=== PATIENT | female | born 1960 | race Caucasian/White ===

== ENCOUNTER 2017-08-10 10:21 | Outpatient (CLI) | payer OTHER ==
[~2017-08-10 10:21] MED LIST: BACTRIM 400-801 EACH PO; DOLOGESIC CAPSU1 CAP PO; MEDROLPACK PO; ORPH100T PO; SYNTHROID50 MCG PO; TUSSI PRES-B L120 M1 PO; ZITHROMAX TRI-500 MG PO
== END 2017-08-10 10:34 | disposition home or self-care (01) ==
LOC: MAMO-SONO 10:21
DX: Z12.31 Encounter for screening mammogram for malignant neoplasm of breast (principal); N60.11 Diffuse cystic mastopathy of right breast; N60.12 Diffuse cystic mastopathy of left breast

== ENCOUNTER 2017-08-10 12:00 | Outpatient (CLI) | payer OTHER | END 2017-08-10 12:13 | disposition home or self-care (01) | LOC: NUCLEAR 12:00 | DX: M81.0 Age-related osteoporosis without current pathological fracture (principal) ==

== ENCOUNTER → 2018-06-09 | Outpatient (CLI) | payer OTHER | END | disposition home or self-care (01) | LOC: LAB 09:25 | DX: E78.2 Mixed hyperlipidemia (principal); I11.9 Hypertensive heart disease without heart failure; E56.8 Deficiency of other vitamins; N39.0 Urinary tract infection, site not specified; Z12.11 Encounter for screening for malignant neoplasm of colon; R19.5 Other fecal abnormalities; E55.9 Vitamin D deficiency, unspecified; N19 Unspecified kidney failure; E11.9 Type 2 diabetes mellitus without complications; C18.0 Malignant neoplasm of cecum; K92.1 Melena; E03.8 Other specified hypothyroidism; D50.8 Other iron deficiency anemias; R80.8 Other proteinuria ==

== ENCOUNTER 2018-06-15 09:25 | Outpatient (CLI) | payer OTHER | END 2018-06-15 09:33 | disposition home or self-care (01) | LOC: LAB 09:25 | DX: E03.8 Other specified hypothyroidism (principal); E78.2 Mixed hyperlipidemia; I11.9 Hypertensive heart disease without heart failure; E56.8 Deficiency of other vitamins; N39.0 Urinary tract infection, site not specified; Z12.11 Encounter for screening for malignant neoplasm of colon; R19.5 Other fecal abnormalities; E55.9 Vitamin D deficiency, unspecified; N19 Unspecified kidney failure; E11.9 Type 2 diabetes mellitus without complications; R80.9 Proteinuria, unspecified; C18.0 Malignant neoplasm of cecum; K92.1 Melena; D50.8 Other iron deficiency anemias ==

== ENCOUNTER 2018-06-25 10:27 | Emergency (ER) | payer OTHER ==
[~2018-06-25] VITALS: Ht 170.2 cm; Wt 61.7 kg
== END 2018-06-25 13:08 | disposition home or self-care (01) ==
LOC: ER 10:27
DX: S90.31XA Contusion of right foot, initial encounter (principal); W10.9XXA Fall (on) (from) unspecified stairs and steps, initial encounter; Y93.89 Activity, other specified; Y92.89 Other specified places as the place of occurrence of the external cause; Y99.8 Other external cause status

== ENCOUNTER → 2018-07-19 | Outpatient (CLI) | payer OTHER | END | disposition home or self-care (01) | LOC: LAB 17:40 | DX: D64.89 Other specified anemias (principal) ==

== ENCOUNTER → 2018-08-21 | Outpatient (CLI) | payer OTHER | END | disposition home or self-care (01) | LOC: RAD 501 11:14 | DX: M20.41 Other hammer toe(s) (acquired), right foot (principal) ==

== ENCOUNTER 2018-09-13 09:45 | Outpatient (CLI) | payer OTHER | END 2018-09-13 09:57 | disposition home or self-care (01) | LOC: RAD 501 09:45 | DX: M77.31 Calcaneal spur, right foot (principal) ==

== ENCOUNTER → 2018-10-13 06:25 | Outpatient (CLI) | payer OTHER | END | disposition home or self-care (01) | LOC: LAB 06:25 | DX: E03.8 Other specified hypothyroidism (principal); E06.3 Autoimmune thyroiditis; D51.1 Vitamin B12 deficiency anemia due to selective vitamin B12 malabsorption with proteinuria; D51.0 Vitamin B12 deficiency anemia due to intrinsic factor deficiency; Z80.3 Family history of malignant neoplasm of breast; Z80.0 Family history of malignant neoplasm of digestive organs; D51.3 Other dietary vitamin B12 deficiency anemia; D50.8 Other iron deficiency anemias; D51.8 Other vitamin B12 deficiency anemias; I10 Essential (primary) hypertension ==

== ENCOUNTER 2018-12-03 10:50 | Emergency (ER) | payer OTHER ==
[~2018-12-03] VITALS: Ht 170.2 cm; Wt 59.0 kg
[2018-12-03] MEDS ORDERED: TESSALON PERLE100 M1 PO (11:41)
[2018-12-03] MEDS ORDERED: INTEGRA CAPSUL1 EACH PO (11:41)
== END 2018-12-03 15:32 | disposition home or self-care (01) ==
LOC: ER 10:50
DX: J45.998 Other asthma (principal)

== ENCOUNTER 2019-01-17 07:13 | Outpatient (CLI) | payer OTHER ==
[~2019-01-17 07:13] MED LIST changes: +INTEGRA CAPSUL1 EACH PO; +TESSALON PERLE100 M1 PO
== END 2019-01-17 07:20 | disposition home or self-care (01) ==
LOC: MAMO-SONO 07:13
DX: N60.11 Diffuse cystic mastopathy of right breast (principal); N60.12 Diffuse cystic mastopathy of left breast

== ENCOUNTER 2019-03-02 07:42 | Outpatient (CLI) | payer OTHER | END 2019-03-02 10:23 | disposition home or self-care (01) | LOC: LAB 07:42 | DX: D50.8 Other iron deficiency anemias (principal); E03.8 Other specified hypothyroidism; E78.2 Mixed hyperlipidemia; I11.9 Hypertensive heart disease without heart failure; N39.0 Urinary tract infection, site not specified; Z12.11 Encounter for screening for malignant neoplasm of colon; E56.8 Deficiency of other vitamins; E55.9 Vitamin D deficiency, unspecified; N19 Unspecified kidney failure; E11.9 Type 2 diabetes mellitus without complications; R80.8 Other proteinuria; C18.0 Malignant neoplasm of cecum; K92.1 Melena ==

== ENCOUNTER 2019-03-12 12:40 | Outpatient (CLI) | payer OTHER | END 2019-03-12 12:47 | disposition home or self-care (01) | LOC: LAB 12:40 | DX: E03.8 Other specified hypothyroidism (principal); Z80.0 Family history of malignant neoplasm of digestive organs; Z80.3 Family history of malignant neoplasm of breast; D55.0 Anemia due to glucose-6-phosphate dehydrogenase [G6PD] deficiency; D51.8 Other vitamin B12 deficiency anemias ==

== ENCOUNTER 2019-05-16 09:26 | Outpatient (CLI) | payer OTHER | END 2019-05-16 16:26 | disposition home or self-care (01) | LOC: LAB 09:26 | DX: E03.8 Other specified hypothyroidism (principal) ==

== ENCOUNTER 2019-06-01 06:48 | Outpatient (CLI) | payer OTHER | END 2019-06-01 06:53 | disposition home or self-care (01) | LOC: LAB 06:48 | DX: D50.8 Other iron deficiency anemias (principal); E03.8 Other specified hypothyroidism; E78.2 Mixed hyperlipidemia; I11.9 Hypertensive heart disease without heart failure; E11.9 Type 2 diabetes mellitus without complications; E56.8 Deficiency of other vitamins; N39.0 Urinary tract infection, site not specified; Z12.11 Encounter for screening for malignant neoplasm of colon; E55.9 Vitamin D deficiency, unspecified; N19 Unspecified kidney failure; R80.8 Other proteinuria; K92.1 Melena ==

== ENCOUNTER 2019-06-05 09:35 | Outpatient (CLI) | payer OTHER | END 2019-06-05 15:00 | disposition home or self-care (01) | LOC: LAB 09:35 | DX: D50.8 Other iron deficiency anemias (principal); E03.8 Other specified hypothyroidism; E78.2 Mixed hyperlipidemia; I11.9 Hypertensive heart disease without heart failure; E56.8 Deficiency of other vitamins; N39.0 Urinary tract infection, site not specified; Z12.11 Encounter for screening for malignant neoplasm of colon; E55.9 Vitamin D deficiency, unspecified; N19 Unspecified kidney failure; E11.9 Type 2 diabetes mellitus without complications; R80.8 Other proteinuria; C18.0 Malignant neoplasm of cecum; K92.1 Melena ==

== ENCOUNTER 2019-06-20 10:01 | Outpatient (CLI) | payer OTHER | END 2019-06-20 12:45 | disposition home or self-care (01) | LOC: RAD 10:01 | DX: M16.0 Bilateral primary osteoarthritis of hip (principal); M17.0 Bilateral primary osteoarthritis of knee ==

== ENCOUNTER 2019-11-05 03:22 | Emergency (ER) | payer OTHER ==
[~2019-11-05] VITALS: Ht 170.2 cm; Wt 61.2 kg
[2019-11-05] MEDS ORDERED: CIPRO500 MG PO (06:15)
[2019-11-05] MEDS ORDERED: PYRIDIUM DS200 MG PO (06:15)
== END 2019-11-05 06:36 | disposition home or self-care (01) ==
LOC: ER 03:22
DX: N39.0 Urinary tract infection, site not specified (principal); B96.29 Other Escherichia coli [E. coli] as the cause of diseases classified elsewhere; R10.31 Right lower quadrant pain

== ENCOUNTER 2020-02-04 13:15 | Outpatient (CLI) | payer OTHER ==
[~2020-02-04 13:15] MED LIST changes: +CIPRO500 MG PO; +PYRIDIUM DS200 MG PO
== END 2020-02-04 13:22 | disposition home or self-care (01) ==
LOC: RAD 13:15
PROVIDERS: ATTEND Physical Medicine & Rehabilitation
DX: M16.12 Unilateral primary osteoarthritis, left hip (principal); M54.5 Low back pain; M54.16 Radiculopathy, lumbar region

== ENCOUNTER 2020-04-01 12:30 | Outpatient (CLI) | payer OTHER | END 2020-04-01 12:49 | disposition home or self-care (01) | LOC: MAMO-SONO 12:30 | PROVIDERS: ATTEND Obstetrics & Gynecology | DX: N60.01 Solitary cyst of right breast (principal); R92.2 Inconclusive mammogram ==

== ENCOUNTER 2020-04-11 09:51 | Outpatient (CLI) | payer OTHER | END 2020-04-11 10:44 | disposition home or self-care (01) | LOC: LAB 09:51 | PROVIDERS: ATTEND Internal Medicine Geriatric Medicine | DX: D50.8 Other iron deficiency anemias (principal); E03.8 Other specified hypothyroidism; E78.2 Mixed hyperlipidemia; I11.9 Hypertensive heart disease without heart failure; E56.8 Deficiency of other vitamins; N39.0 Urinary tract infection, site not specified; Z12.11 Encounter for screening for malignant neoplasm of colon; E55.9 Vitamin D deficiency, unspecified; N19 Unspecified kidney failure; E11.9 Type 2 diabetes mellitus without complications; R80.8 Other proteinuria; C18.0 Malignant neoplasm of cecum; K92.1 Melena ==

== ENCOUNTER → 2020-09-26 06:45 | Outpatient (CLI) | payer OTHER | END | disposition home or self-care (01) | LOC: LAB 06:45 | PROVIDERS: ATTEND Internal Medicine Geriatric Medicine | DX: D50.9 Iron deficiency anemia, unspecified (principal); E03.9 Hypothyroidism, unspecified; E78.2 Mixed hyperlipidemia; I11.9 Hypertensive heart disease without heart failure; E56.8 Deficiency of other vitamins; N39.0 Urinary tract infection, site not specified; Z12.11 Encounter for screening for malignant neoplasm of colon; E55.9 Vitamin D deficiency, unspecified; N19 Unspecified kidney failure; E11.9 Type 2 diabetes mellitus without complications; R80.9 Proteinuria, unspecified; K92.1 Melena ==

== ENCOUNTER → 2020-09-30 06:52 | Outpatient (CLI) | payer OTHER | END | disposition home or self-care (01) | LOC: LAB 06:52 | PROVIDERS: ATTEND Internal Medicine Geriatric Medicine | DX: D50.9 Iron deficiency anemia, unspecified (principal); E03.9 Hypothyroidism, unspecified; E78.2 Mixed hyperlipidemia; I11.9 Hypertensive heart disease without heart failure; E56.8 Deficiency of other vitamins; N39.0 Urinary tract infection, site not specified; Z12.11 Encounter for screening for malignant neoplasm of colon; E55.9 Vitamin D deficiency, unspecified; N19 Unspecified kidney failure; E11.9 Type 2 diabetes mellitus without complications; R80.9 Proteinuria, unspecified; C18.9 Malignant neoplasm of colon, unspecified; K92.1 Melena; Z12.10 Encounter for screening for malignant neoplasm of intestinal tract, unspecified ==

== ENCOUNTER 2020-11-24 13:08 | Outpatient (CLI) | payer OTHER | END 2020-11-24 13:09 | disposition home or self-care (01) | LOC: NUCLEAR 13:08 | PROVIDERS: ATTEND Obstetrics & Gynecology | DX: M81.0 Age-related osteoporosis without current pathological fracture (principal) ==

== ENCOUNTER → 2021-01-28 09:06 | Outpatient (CLI) | payer OTHER | END | disposition home or self-care (01) | LOC: LAB 09:06 | PROVIDERS: ATTEND Internal Medicine Geriatric Medicine | DX: D50.8 Other iron deficiency anemias (principal); E03.8 Other specified hypothyroidism; E78.2 Mixed hyperlipidemia; I11.9 Hypertensive heart disease without heart failure; E56.8 Deficiency of other vitamins; N39.0 Urinary tract infection, site not specified; Z12.11 Encounter for screening for malignant neoplasm of colon; R19.5 Other fecal abnormalities; E55.9 Vitamin D deficiency, unspecified; N28.89 Other specified disorders of kidney and ureter; E11.9 Type 2 diabetes mellitus without complications; R80.8 Other proteinuria ==

== ENCOUNTER 2021-01-30 14:20 | Outpatient (CLI) | payer OTHER | END 2021-01-30 14:35 | disposition home or self-care (01) | LOC: PPH VACUNA 14:20 | PROVIDERS: ATTEND Emergency Medicine Pediatric Emergency Medicine | DX: Z23 Encounter for immunization (principal) ==

== ENCOUNTER 2021-02-20 09:00 | Outpatient (CLI) | payer OTHER | END 2021-02-20 09:24 | disposition home or self-care (01) | LOC: RX STUDY 09:00 | PROVIDERS: ATTEND Internal Medicine Geriatric Medicine | DX: R13.19 Other dysphagia (principal) ==

== ENCOUNTER → 2021-02-26 09:36 | Outpatient (CLI) | payer OTHER | END | disposition home or self-care (01) | LOC: LAB 09:36 | PROVIDERS: ATTEND Internal Medicine Geriatric Medicine | DX: D64.89 Other specified anemias (principal); E73.8 Other lactose intolerance ==

== ENCOUNTER 2021-07-23 07:55 | Outpatient (CLI) | payer OTHER | END 2021-07-23 08:11 | disposition home or self-care (01) | LOC: MAMO-SONO 07:55 | PROVIDERS: ATTEND Internal Medicine Geriatric Medicine | DX: C50.919 Malignant neoplasm of unspecified site of unspecified female breast (principal); Z12.31 Encounter for screening mammogram for malignant neoplasm of breast; N63 Unspecified lump in breast; N64.4 Mastodynia; N60.12 Diffuse cystic mastopathy of left breast; N60.11 Diffuse cystic mastopathy of right breast ==

== ENCOUNTER 2021-08-25 08:00 | Outpatient (CLI) | payer OTHER | END 2021-08-25 08:30 | disposition home or self-care (01) | LOC: PPH VACUNA 08:00 | PROVIDERS: ATTEND Emergency Medicine Pediatric Emergency Medicine | DX: Z23 Encounter for immunization (principal) ==

== ENCOUNTER 2021-08-27 10:10 | Outpatient (CLI) | payer OTHER | END 2021-08-27 10:42 | disposition home or self-care (01) | LOC: LAB 10:10 | PROVIDERS: ATTEND Obstetrics & Gynecology | DX: N95.8 Other specified menopausal and perimenopausal disorders (principal) ==

== ENCOUNTER 2021-11-12 06:16 | Outpatient (CLI) | payer OTHER | END 2021-11-12 06:17 | disposition home or self-care (01) | LOC: LAB 06:16 | PROVIDERS: ATTEND Internal Medicine Geriatric Medicine | DX: D50.9 Iron deficiency anemia, unspecified (principal); E03.9 Hypothyroidism, unspecified; E78.2 Mixed hyperlipidemia; I11.9 Hypertensive heart disease without heart failure; E56.8 Deficiency of other vitamins; N39.0 Urinary tract infection, site not specified; Z12.11 Encounter for screening for malignant neoplasm of colon; R19.5 Other fecal abnormalities; E55.9 Vitamin D deficiency, unspecified; N19 Unspecified kidney failure; E11.9 Type 2 diabetes mellitus without complications ==

== ENCOUNTER 2021-11-25 09:37 | Emergency (ER) | payer OTHER ==
[~2021-11-25] VITALS: Ht 167.6 cm; Wt 56.7 kg
== END 2021-11-25 12:09 | disposition home or self-care (01) ==
LOC: ER 09:37
DX: M94.0 Chondrocostal junction syndrome [Tietze] (principal); E03.9 Hypothyroidism, unspecified; Z72.0 Tobacco use

== ENCOUNTER 2021-12-24 10:20 | Outpatient (CLI) | payer OTHER | END 2021-12-24 10:31 | disposition home or self-care (01) | LOC: LAB 10:20 | PROVIDERS: ATTEND Internal Medicine Geriatric Medicine | DX: N39.0 Urinary tract infection, site not specified (principal) ==

== ENCOUNTER 2022-01-11 09:26 | Outpatient (CLI) | payer OTHER | END 2022-01-11 09:38 | disposition home or self-care (01) | LOC: RAD 09:26 | PROVIDERS: ATTEND Internal Medicine Geriatric Medicine | DX: M19.029 Primary osteoarthritis, unspecified elbow (principal) ==

== ENCOUNTER 2022-01-13 13:32 | Outpatient (CLI) | payer OTHER | END 2022-01-13 13:42 | disposition home or self-care (01) | LOC: PPH VACUNA 13:32 | PROVIDERS: ATTEND Emergency Medicine Pediatric Emergency Medicine | DX: Z23 Encounter for immunization (principal) ==

== ENCOUNTER 2022-02-01 11:10 | Emergency (ER) | payer OTHER ==
[~2022-02-01] VITALS: Ht 170.2 cm; Wt 56.7 kg
== END 2022-02-01 15:59 | disposition home or self-care (01) ==
LOC: ER 11:10
DX: R10.2 Pelvic and perineal pain (principal)

== ENCOUNTER 2022-02-03 11:42 | Outpatient (CLI) | payer OTHER | END 2022-02-03 11:52 | disposition home or self-care (01) | LOC: LAB 11:42 | PROVIDERS: ATTEND Internal Medicine Geriatric Medicine | DX: D50.9 Iron deficiency anemia, unspecified (principal); E03.9 Hypothyroidism, unspecified; E78.2 Mixed hyperlipidemia; I11.9 Hypertensive heart disease without heart failure; E56.8 Deficiency of other vitamins; N39.0 Urinary tract infection, site not specified; Z12.11 Encounter for screening for malignant neoplasm of colon; R19.5 Other fecal abnormalities; E55.9 Vitamin D deficiency, unspecified; N19 Unspecified kidney failure; E11.9 Type 2 diabetes mellitus without complications ==

== ENCOUNTER → 2022-04-10 09:53 | Outpatient (CLI) | payer OTHER | END | disposition home or self-care (01) | LOC: LAB 09:53 | PROVIDERS: ATTEND Psychiatry & Neurology Neurology | DX: G30.9 Alzheimer's disease, unspecified (principal); M06.00 Rheumatoid arthritis without rheumatoid factor, unspecified site; D51.9 Vitamin B12 deficiency anemia, unspecified; E03.9 Hypothyroidism, unspecified ==

== ENCOUNTER 2022-05-08 10:25 | Outpatient (CLI) | payer OTHER | END 2022-05-08 10:29 | disposition home or self-care (01) | LOC: LAB 10:25 | PROVIDERS: ATTEND Internal Medicine Gastroenterology | DX: Z11.52 Encounter for screening for COVID-19 (principal); Z20.822 Contact with and (suspected) exposure to COVID-19; Z20.828 Contact with and (suspected) exposure to other viral communicable diseases ==

== ENCOUNTER 2022-05-12 08:39 | Outpatient (CLI) | payer OTHER | END 2022-05-12 08:49 | disposition home or self-care (01) | LOC: SONOGRAMA 08:39 | PROVIDERS: ATTEND Internal Medicine Gastroenterology | DX: R10.13 Epigastric pain (principal) ==

== ENCOUNTER → 2022-06-01 10:13 | Outpatient (CLI) | payer OTHER | END | disposition home or self-care (01) | LOC: LAB 10:13 | PROVIDERS: ATTEND Internal Medicine Geriatric Medicine | DX: D50.9 Iron deficiency anemia, unspecified (principal); E03.9 Hypothyroidism, unspecified; E78.2 Mixed hyperlipidemia; I11.9 Hypertensive heart disease without heart failure; E56.8 Deficiency of other vitamins; N39.0 Urinary tract infection, site not specified; Z12.11 Encounter for screening for malignant neoplasm of colon; R19.5 Other fecal abnormalities; E55.9 Vitamin D deficiency, unspecified; N19 Unspecified kidney failure; E11.9 Type 2 diabetes mellitus without complications ==

== ENCOUNTER → 2022-07-19 10:42 | Outpatient (CLI) | payer OTHER | END | disposition home or self-care (01) | LOC: LAB 10:42 | PROVIDERS: ATTEND Internal Medicine Geriatric Medicine | DX: N39.0 Urinary tract infection, site not specified (principal) ==

== ENCOUNTER 2022-07-27 08:06 | Outpatient (CLI) | payer OTHER | END 2022-07-27 08:14 | disposition home or self-care (01) | LOC: MAMO-SONO 08:06 | PROVIDERS: ATTEND Obstetrics & Gynecology | DX: Z12.31 Encounter for screening mammogram for malignant neoplasm of breast (principal); N60.11 Diffuse cystic mastopathy of right breast; N60.12 Diffuse cystic mastopathy of left breast ==

== ENCOUNTER 2022-08-16 09:28 | Emergency (ER) | payer OTHER ==
[~2022-08-16] VITALS: Ht 170.2 cm; Wt 56.7 kg
== END 2022-08-16 13:21 | disposition home or self-care (01) ==
LOC: ER 09:28
DX: R30.0 Dysuria (principal); N39.0 Urinary tract infection, site not specified

== ENCOUNTER 2022-11-08 07:12 | Outpatient (CLI) | payer OTHER | END 2022-11-08 07:13 | disposition home or self-care (01) | LOC: LAB 07:12 | PROVIDERS: ATTEND Internal Medicine Geriatric Medicine | DX: D50.9 Iron deficiency anemia, unspecified (principal); E03.9 Hypothyroidism, unspecified; E78.2 Mixed hyperlipidemia; I11.9 Hypertensive heart disease without heart failure; E56.8 Deficiency of other vitamins; N39.0 Urinary tract infection, site not specified; Z12.11 Encounter for screening for malignant neoplasm of colon; R19.5 Other fecal abnormalities; E55.9 Vitamin D deficiency, unspecified; N19 Unspecified kidney failure; E11.9 Type 2 diabetes mellitus without complications ==

== ENCOUNTER 2022-12-16 08:26 | Outpatient (CLI) | payer OTHER | END 2022-12-16 08:28 | disposition home or self-care (01) | LOC: LAB 08:26 | PROVIDERS: ATTEND Internal Medicine Gastroenterology | DX: R10.31 Right lower quadrant pain (principal) ==

== ENCOUNTER 2022-12-17 07:41 | Outpatient (CLI) | payer OTHER | END 2022-12-17 07:51 | disposition home or self-care (01) | LOC: TOM 07:41 | PROVIDERS: ATTEND Internal Medicine Gastroenterology | DX: R10.32 Left lower quadrant pain (principal) ==

== ENCOUNTER 2023-02-24 09:49 | Outpatient (CLI) | payer OTHER ==
[2023-02-24 11:12] LABS: URINE APPEARANCE Clear; URINE BILIRRUBIN Negative (NEGATIVE); URINE BLOOD Negative; URINE COLOR Yellow; URINE GLUCOSE Negative (NEGATIVE); URINE LEUKOCYTE Trace; URINE NITRATE Negative; URINE PROTEIN Negative (NEGATIVE); URINE UROBILINOGEN 0.2 E.U./dl
[2023-02-24 11:16] LABS: URINE BACTERIA 42.8 uL (0.0-1933); URINE WBC 42.6 uL (0.0-23.2)
[2023-02-24 11:20] LABS: URINE RBC 1.2 uL (0.0-20.8)
[2023-02-24 11:38] LABS: HEMATOCRIT 35.2 % (36.0-45.00); HEMOGLOBIN 11.8 g/dL (12.0-15.00); MEAN CELL VOLUME 98.7 fL (80.00-100.00); MEAN CORPUSCULAR HEMOGLOBIN 33.1 pg (27.00-32.0); MEAN CORPUSCULAR HGB CONC 33.6 g/dl (32.0-36.0); PLATELET COUNT 348 K/uL (150-450); RED BLOOD COUNT 3.56 M/uL (4.00-6.00)
[2023-02-24 12:13] LABS: BILIRUBIN TOTAL 0.95 mg/dL (0.3-1.2); CALCIUM 9.5 mg/dL (8.5-10.1); CHOL HDL RATIO 2.2 (0-5.0); CREATININE SERUM 0.72 mg/dL (0.55-1.02); GFR 82.08; GLOBULINA 3.4 G/DL (2.4-3.5); POTASSIUM 4.41 mEq/L (3.5-5.1); TOTAL PROTEIN 7.4 gm/dL (6.4-8.2); TSH 1.41 uIU/mL (0.358-3.74)
== END 2023-02-24 10:10 | disposition home or self-care (01) ==
LOC: LAB 09:49
PROVIDERS: ATTEND Obstetrics & Gynecology
DX: E78.49 Other hyperlipidemia (principal); E03.8 Other specified hypothyroidism; N30.00 Acute cystitis without hematuria; E55.9 Vitamin D deficiency, unspecified; I10 Essential (primary) hypertension; Z12.11 Encounter for screening for malignant neoplasm of colon

== ENCOUNTER 2023-03-01 09:58 | Outpatient (CLI) | payer OTHER ==
[2023-03-01 14:03] LABS: ob NEGATIVE (NEGATIVE)
== END 2023-03-01 10:03 | disposition home or self-care (01) ==
LOC: LAB 09:58
PROVIDERS: ATTEND Obstetrics & Gynecology
DX: I10 Essential (primary) hypertension (principal); N30.00 Acute cystitis without hematuria; E55.9 Vitamin D deficiency, unspecified; Z12.11 Encounter for screening for malignant neoplasm of colon; E78.49 Other hyperlipidemia

== ENCOUNTER → 2023-05-19 09:02 | Outpatient (CLI) | payer OTHER ==
[2023-05-19 10:13] LABS: HEMATOCRIT 36.7 % (36.0-45.00); HEMOGLOBIN 12.6 g/dL (12.0-15.00); MEAN CELL VOLUME 100.1 fL (80.00-100.00); MEAN CORPUSCULAR HEMOGLOBIN 34.3 pg (27.00-32.0); MEAN CORPUSCULAR HGB CONC 34.3 g/dl (32.0-36.0); PLATELET COUNT 319 K/uL (150-450); RED BLOOD COUNT 3.67 M/uL (4.00-6.00); RED CELL DISTRIBUTION WIDTH 12.6 % (11.5-14.5)
[2023-05-19 10:24] LABS: PH,URINE 6.5 (5.0-8.0); URINE APPEARANCE Clear; URINE BILIRRUBIN Negative (NEGATIVE); URINE BLOOD Negative; URINE COLOR Yellow; URINE GLUCOSE Negative (NEGATIVE); URINE LEUKOCYTE Trace; URINE NITRATE Negative; URINE PROTEIN Negative (NEGATIVE); URINE UROBILINOGEN 0.2 E.U./dl
[2023-05-19 10:29] LABS: URINE BACTERIA 16.3 uL (0.0-1933); URINE EPITHELIAL CELLS 1.5 uL (0.0-38.8); URINE WBC 3.5 uL (0.0-23.2)
[2023-05-19 10:51] LABS: ALBUMIN 4.1 gm/dL (3.4-5.0); BILIRUBIN TOTAL 0.6 mg/dL (0.3-1.2); CALCIUM 9.9 mg/dL (8.5-10.1); CHOL HDL RATIO 2.3 (0-5.0); CREATININE SERUM 0.76 mg/dL (0.55-1.02); GFR 77.11; GLOBULINA 3.5 G/DL (2.4-3.5); POTASSIUM 4.66 mEq/L (3.5-5.1); TOTAL PROTEIN 7.6 gm/dL (6.4-8.2); TSH 1.63 uIU/mL (0.358-3.74)
== END | disposition home or self-care (01) ==
LOC: LAB 09:02
PROVIDERS: ATTEND Internal Medicine Geriatric Medicine
DX: D50.9 Iron deficiency anemia, unspecified (principal); E03.9 Hypothyroidism, unspecified; E78.2 Mixed hyperlipidemia; I11.9 Hypertensive heart disease without heart failure; E56.8 Deficiency of other vitamins; N39.0 Urinary tract infection, site not specified; Z12.11 Encounter for screening for malignant neoplasm of colon; R19.5 Other fecal abnormalities; E55.9 Vitamin D deficiency, unspecified; N19 Unspecified kidney failure; E11.9 Type 2 diabetes mellitus without complications

== ENCOUNTER → 2023-08-04 13:38 | Outpatient (CLI) | payer OTHER | END | disposition home or self-care (01) | LOC: NUCLEAR 13:38 | PROVIDERS: ATTEND Obstetrics & Gynecology | DX: M81.0 Age-related osteoporosis without current pathological fracture (principal) ==

== ENCOUNTER → 2023-12-01 06:27 | Outpatient (CLI) | payer OTHER ==
[2023-12-01 07:16] LABS: PH,URINE 5.5 (5.0-8.0); URINE APPEARANCE Cloudy; URINE BILIRRUBIN Negative (NEGATIVE); URINE BLOOD Negative; URINE COLOR Yellow; URINE GLUCOSE Negative (NEGATIVE); URINE KETONE Negative (NEGATIVE); URINE LEUKOCYTE Moderate; URINE NITRATE Negative; URINE PROTEIN Negative (NEGATIVE); URINE UROBILINOGEN 0.2 E.U./dl
[2023-12-01 07:17] LABS: URINE BACTERIA 4104.6 uL (0.0-1933); URINE EPITHELIAL CELLS 9.4 uL (0.0-38.8); URINE WBC 450.9 uL (0.0-23.2)
[2023-12-01 07:22] LABS: URINE RBC 1.9 uL (0.0-20.8)
[2023-12-01 07:29] LABS: HEMATOCRIT 36.7 % (36.0-45.00); HEMOGLOBIN 12.7 g/dL (12.0-15.00); MEAN CELL VOLUME 98.5 fL (80.00-100.00); MEAN CORPUSCULAR HGB CONC 34.5 g/dl (32.0-36.0); PLATELET COUNT 314 K/uL (150-450); RED BLOOD COUNT 3.73 M/uL (4.00-6.00); RED CELL DISTRIBUTION WIDTH 12.6 % (11.5-14.5)
[2023-12-01 08:23] LABS: ALBUMIN 4.1 gm/dL (3.4-5.0); BILIRUBIN TOTAL 0.8 mg/dL (0.3-1.2); CALCIUM 9.9 mg/dL (8.5-10.1); CHOL HDL RATIO 2.3 (0-5.0); CREATININE SERUM 0.74 mg/dL (0.55-1.02); GFR 79.26; GLOBULINA 3.4 G/DL (2.4-3.5); POTASSIUM 4.45 mEq/L (3.5-5.1); TOTAL PROTEIN 7.5 gm/dL (6.4-8.2); TSH 1.26 uIU/mL (0.358-3.74)
== END | disposition home or self-care (01) ==
LOC: LAB 06:27
PROVIDERS: ATTEND Internal Medicine Geriatric Medicine
DX: D50.9 Iron deficiency anemia, unspecified (principal); E03.9 Hypothyroidism, unspecified; E78.2 Mixed hyperlipidemia; Z11.9 Encounter for screening for infectious and parasitic diseases, unspecified; E56.8 Deficiency of other vitamins; N39.0 Urinary tract infection, site not specified; Z12.11 Encounter for screening for malignant neoplasm of colon; R19.5 Other fecal abnormalities; E55.9 Vitamin D deficiency, unspecified; N19 Unspecified kidney failure; E11.9 Type 2 diabetes mellitus without complications

== ENCOUNTER 2023-12-02 12:20 | Outpatient (CLI) | payer OTHER ==
[2023-12-02 13:28] LABS: ob NEGATIVE (NEGATIVE)
== END 2023-12-02 13:39 | disposition home or self-care (01) ==
LOC: LAB 12:20
PROVIDERS: ATTEND Internal Medicine Geriatric Medicine
DX: D50.9 Iron deficiency anemia, unspecified (principal); E03.9 Hypothyroidism, unspecified; E78.2 Mixed hyperlipidemia; I11.9 Hypertensive heart disease without heart failure; E56.8 Deficiency of other vitamins; N39.0 Urinary tract infection, site not specified; Z12.11 Encounter for screening for malignant neoplasm of colon; R19.5 Other fecal abnormalities; E55.9 Vitamin D deficiency, unspecified; N19 Unspecified kidney failure; E11.9 Type 2 diabetes mellitus without complications

== ENCOUNTER 2023-12-09 09:45 | Emergency (ER) | payer OTHER ==
[~2023-12-09] VITALS: Ht 167.6 cm; Wt 50.3 kg
[2023-12-09] MEDS ORDERED: KETOROLAC TROMETHAMINE 30 MG VIAL IM STA (11:01)
[2023-12-09] MEDS ORDERED: ORPHENADRINE CITRATE 30 MG/ML AMPUL IM STA (11:01)
[2023-12-09] MEDS ORDERED: KETOROLAC TROMETHAMINE 60 MG VIAL IM ONE (11:21)
[2023-12-09] MEDS ORDERED: ORPHENADRINE CITRATE 30 MG/ML AMPUL ONE (11:21)
== END 2023-12-09 11:33 | disposition home or self-care (01) ==
LOC: ER 09:46
DX: M54.50 Low back pain, unspecified (principal)

== ENCOUNTER → 2023-12-23 | Emergency (ER) | payer OTHER ==
[~2023-12-23] VITALS: Ht 167.6 cm; Wt 49.9 kg
[~2023-12-23] MED LIST changes: +ADVIL DUAL ACT1 EACH PO; +HYDROCODONE/CHLORPHEN P-STIREX 5 ML ML PO STA; +OSEL75CA PO
[2023-12-23 13:32] LABS: HEMATOCRIT 37.3 % (36.0-45.00); HEMOGLOBIN 12.7 g/dL (12.0-15.00); MEAN CELL VOLUME 99.7 fL (80.00-100.00); MEAN CORPUSCULAR HGB CONC 34.1 g/dl (32.0-36.0); PLATELET COUNT 243 K/uL (150-450); RED BLOOD COUNT 3.75 M/uL (4.00-6.00); RED CELL DISTRIBUTION WIDTH 12.8 % (11.5-14.5)
== END | disposition home or self-care (01) ==
LOC: ER 11:05
PROVIDERS: General Practice
DX: R53.81 Other malaise (principal); J10.1 Influenza due to other identified influenza virus with other respiratory manifestations; R05.9 Cough, unspecified; Z20.822 Contact with and (suspected) exposure to COVID-19; E03.8 Other specified hypothyroidism

== ENCOUNTER 2023-12-26 11:16 | Emergency (ER) | payer OTHER ==
[~2023-12-26] VITALS: Ht 167.6 cm; Wt 49.9 kg
[~2023-12-26 11:16] MED LIST changes: -HYDROCODONE/CHLORPHEN P-STIREX 5 ML ML PO STA
[2023-12-26] MEDS ORDERED: ACETAMINOPHEN 500 MG GEL..CAP PO ONE ×2 (14:00→15:08)
[2023-12-26] MEDS ORDERED: 0.9 % SODIUM CHLORIDE 500 ML IV ONE (14:00)
[2023-12-26 15:26] LABS: HEMATOCRIT 40.4 % (36.0-45.00); HEMOGLOBIN 13.8 g/dL (12.0-15.00); MEAN CELL VOLUME 99.5 fL (80.00-100.00); MEAN CORPUSCULAR HGB CONC 34.2 g/dl (32.0-36.0); PLATELET COUNT 244 K/uL (150-450); RED BLOOD COUNT 4.06 M/uL (4.00-6.00); RED CELL DISTRIBUTION WIDTH 12.8 % (11.5-14.5)
[2023-12-26 16:03] LABS: ALBUMIN 3.9 gm/dL (3.4-5.0); BILIRUBIN TOTAL 0.44 mg/dL (0.3-1.2); CALCIUM 9.6 mg/dL (8.5-10.1); CREATININE SERUM 0.8 mg/dL (0.55-1.02); GFR 72.44; GLOBULINA 4.5 G/DL (2.4-3.5); POTASSIUM 3.77 mEq/L (3.5-5.1); TOTAL PROTEIN 8.4 gm/dL (6.4-8.2)
[2023-12-26 16:52] LABS: PH,URINE 5.5 (5.0-8.0); URINE APPEARANCE Clear; URINE BILIRRUBIN Negative (NEGATIVE); URINE BLOOD Negative; URINE COLOR Yellow; URINE GLUCOSE Negative (NEGATIVE); URINE KETONE Trace (NEGATIVE); URINE LEUKOCYTE Small; URINE NITRATE Negative; URINE PROTEIN Trace (NEGATIVE); URINE UROBILINOGEN 0.2 E.U./dl
[2023-12-26 16:56] LABS: URINE BACTERIA 282.2 uL (0.0-1933); URINE EPITHELIAL CELLS 20.8 uL (0.0-38.8); URINE RBC 3.9 uL (0.0-20.8); URINE WBC 38.6 uL (0.0-23.2)
[2023-12-26 17:49] LABS: URINE CAST 0.45 uL (0.0-1.40)
== END 2023-12-26 18:51 | disposition home or self-care (01) ==
LOC: ER 11:18
PROVIDERS: General Practice
DX: J10.1 Influenza due to other identified influenza virus with other respiratory manifestations (principal); Z87.09 Personal history of other diseases of the respiratory system; E03.9 Hypothyroidism, unspecified

== ENCOUNTER 2024-01-17 09:25 | Outpatient (CLI) | payer OTHER ==
[2024-01-17 10:41] LABS: PH,URINE 6.5 (5.0-8.0); URINE APPEARANCE Clear; URINE BILIRRUBIN Negative (NEGATIVE); URINE BLOOD Negative; URINE COLOR Yellow; URINE GLUCOSE Negative (NEGATIVE); URINE KETONE Negative (NEGATIVE); URINE LEUKOCYTE Moderate; URINE NITRATE Negative; URINE PROTEIN Negative (NEGATIVE); URINE UROBILINOGEN 0.2 E.U./dl
[2024-01-17 10:42] LABS: URINE BACTERIA 176.3 uL (0.0-1933); URINE EPITHELIAL CELLS 15.6 uL (0.0-38.8); URINE WBC 69.8 uL (0.0-23.2)
[2024-01-17 10:45] LABS: URINE RBC 1.8 uL (0.0-20.8)
== END 2024-01-17 09:30 | disposition home or self-care (01) ==
LOC: LAB 09:25
PROVIDERS: ATTEND Internal Medicine Geriatric Medicine
DX: N39.0 Urinary tract infection, site not specified (principal)

== ENCOUNTER → 2024-01-17 | Outpatient (CLI) | payer OTHER | END | disposition home or self-care (01) | LOC: SONOGRAMA 10:18 | DX: N20.0 Calculus of kidney (principal) ==

== ENCOUNTER 2024-01-24 08:24 | Outpatient (CLI) | payer OTHER | END 2024-01-24 08:37 | disposition home or self-care (01) | LOC: TOM 08:24 | PROVIDERS: ATTEND Internal Medicine Geriatric Medicine | DX: R10.9 Unspecified abdominal pain (principal); R63.4 Abnormal weight loss ==

== ENCOUNTER 2024-02-01 00:18 | Emergency (ER) | payer OTHER ==
[~2024-02-01] VITALS: Ht 170.2 cm; Wt 49.9 kg
[2024-02-01] MEDS ORDERED: LEVO-T88 MCG PO (00:38)
[2024-02-01] MEDS ORDERED: HYOSCYAMINE SULFATE 0.125 MG TAB.SUBL SL STA (03:28)
[2024-02-01 03:46] LABS: HEMATOCRIT 35.8 % (36.0-45.00); HEMOGLOBIN 12.2 g/dL (12.0-15.00); MEAN CELL VOLUME 100.4 fL (80.00-100.00); MEAN CORPUSCULAR HEMOGLOBIN 34.2 pg (27.00-32.0); MEAN CORPUSCULAR HGB CONC 34.1 g/dl (32.0-36.0); PLATELET COUNT 342 K/uL (150-450); RED BLOOD COUNT 3.57 M/uL (4.00-6.00); RED CELL DISTRIBUTION WIDTH 13.5 % (11.5-14.5)
[2024-02-01 04:22] LABS: BILIRUBIN TOTAL 0.6 mg/dL (0.3-1.2); CALCIUM 9.3 mg/dL (8.5-10.1); CREATININE SERUM 0.82 mg/dL (0.55-1.02); GFR 70.41; GLOBULINA 3.6 G/DL (2.4-3.5); POTASSIUM 4.11 mEq/L (3.5-5.1); TOTAL PROTEIN 7.6 gm/dL (6.4-8.2)
[2024-02-01 06:32] LABS: URINE APPEARANCE Clear; URINE BILIRRUBIN Negative (NEGATIVE); URINE BLOOD Negative; URINE COLOR Yellow; URINE GLUCOSE Negative (NEGATIVE); URINE KETONE Negative (NEGATIVE); URINE LEUKOCYTE Negative; URINE NITRATE Negative; URINE PROTEIN Negative (NEGATIVE); URINE UROBILINOGEN 0.2 E.U./dl
[2024-02-01 06:36] LABS: URINE EPITHELIAL CELLS 2.7 uL (0.0-38.8)
[2024-02-01 06:52] LABS: URINE CAST 0.15 uL (0.0-1.40); URINE RBC 0.6 uL (0.0-20.8); URINE WBC 1.5 uL (0.0-23.2)
[2024-02-01] MEDS ORDERED: PHAZYME180 MG PO (07:41)
[2024-02-01] MEDS ORDERED: ONDANSETRON ODT4 MG PO (07:41)
[2024-02-01] MEDS ORDERED: DICY20TA PO (07:41)
[2024-02-01] MEDS ORDERED: INTESTINEX680 M2 PO (07:41)
== END 2024-02-01 07:58 ==
LOC: ER 00:20
PROVIDERS: General Practice
DX: R10.9 Unspecified abdominal pain (principal); R10.13 Epigastric pain; E03.8 Other specified hypothyroidism

== ENCOUNTER 2024-06-01 13:22 | Emergency (ER) | payer OTHER ==
[~2024-06-01] VITALS: Ht 170.2 cm; Wt 54.4 kg
[~2024-06-01 13:22] MED LIST changes: +DICY20TA PO; +INTESTINEX680 M2 PO; +LEVO-T88 MCG PO; +ONDANSETRON ODT4 MG PO; +PHAZYME180 MG PO
[2024-06-01] MEDS ORDERED: ASPIRIN 325 MG TABLET.EC PO STA (13:39)
[2024-06-01] MEDS ORDERED: ACETAMINOPHEN 325 MG TABLET PO ONE (13:47)
[2024-06-01] MEDS ORDERED: ASPIRIN 325 MG TABLET.EC PO ONE (13:48)
[2024-06-01] MEDS ORDERED: NITROGLYCERIN IN 5 % DEXTROSE 250 ML IV SCH (14:30)
[2024-06-01 14:57] LABS: HEMATOCRIT 38.3 % (36.0-45.00); HEMOGLOBIN 12.9 g/dL (12.0-15.00); MEAN CELL VOLUME 99.3 fL (80.00-100.00); MEAN CORPUSCULAR HEMOGLOBIN 33.5 pg (27.00-32.0); MEAN CORPUSCULAR HGB CONC 33.7 g/dl (32.0-36.0); PLATELET COUNT 321 K/uL (150-450); RED BLOOD COUNT 3.86 M/uL (4.00-6.00); RED CELL DISTRIBUTION WIDTH 12.5 % (11.5-14.5)
[2024-06-01 15:13] LABS: PARTIAL THROMBOPLASTIN TIME 28.2 SECONDS (22.0-34.0); PROTHROMBIN TIME 10.9 SECONDS (9.0-11.5)
[2024-06-01 15:19] LABS: CREATININE SERUM 0.79 mg/dL (0.55-1.02); GFR 73.5; POTASSIUM 3.54 mEq/L (3.5-5.1)
[2024-06-01] MEDS ORDERED: NITROGLYCERIN IN 5 % DEXTROSE 50 MG/250 ML BOTTLE IV ONE (15:58)
[2024-06-01] MEDS ORDERED: COZAAR50 MG PO (18:51)
== END 2024-06-01 19:22 | disposition home or self-care (01) ==
LOC: ER 13:25
PROVIDERS: Emergency Medicine
DX: I10 Essential (primary) hypertension (principal); R07.89 Other chest pain; E03.9 Hypothyroidism, unspecified

== ENCOUNTER → 2024-06-07 08:12 | Outpatient (CLI) | payer OTHER ==
[~2024-06-07 08:12] MED LIST changes: +COZAAR50 MG PO
[2024-06-07 09:08] LABS: URINE APPEARANCE Clear; URINE BILIRRUBIN Negative (NEGATIVE); URINE BLOOD Negative; URINE COLOR Yellow; URINE GLUCOSE Negative (NEGATIVE); URINE KETONE Negative (NEGATIVE); URINE LEUKOCYTE Negative; URINE NITRATE Negative; URINE PROTEIN Negative (NEGATIVE); URINE UROBILINOGEN 0.2 E.U./dl
[2024-06-07 09:09] LABS: URINE BACTERIA 4.8 uL (0.0-1933); URINE EPITHELIAL CELLS 3.7 uL (0.0-38.8)
[2024-06-07 09:14] LABS: HEMATOCRIT 38.5 % (36.0-45.00); MEAN CELL VOLUME 100.1 fL (80.00-100.00); MEAN CORPUSCULAR HEMOGLOBIN 33.9 pg (27.00-32.0); MEAN CORPUSCULAR HGB CONC 33.8 g/dl (32.0-36.0); PLATELET COUNT 305 K/uL (150-450); RED BLOOD COUNT 3.85 M/uL (4.00-6.00); RED CELL DISTRIBUTION WIDTH 12.6 % (11.5-14.5)
[2024-06-07 09:16] LABS: URINE RBC 0.4 uL (0.0-20.8); URINE WBC 1.5 uL (0.0-23.2)
[2024-06-07 10:03] LABS: ALBUMIN 4.1 gm/dL (3.4-5.0); BILIRUBIN TOTAL 0.98 mg/dL (0.3-1.2); CALCIUM 9.9 mg/dL (8.5-10.1); CHOL HDL RATIO 2.1 (0-5.0); CREATININE SERUM 0.69 mg/dL (0.55-1.02); GFR 85.93; GLOBULINA 3.6 G/DL (2.4-3.5); POTASSIUM 3.99 mEq/L (3.5-5.1); TOTAL PROTEIN 7.7 gm/dL (6.4-8.2)
[2024-06-07 10:18] LABS: TSH 1.93 uIU/mL (0.358-3.74)
== END | disposition home or self-care (01) ==
LOC: LAB 08:12
PROVIDERS: ATTEND Internal Medicine Geriatric Medicine
DX: D50.9 Iron deficiency anemia, unspecified (principal); E03.9 Hypothyroidism, unspecified; E78.2 Mixed hyperlipidemia; I11.9 Hypertensive heart disease without heart failure; E56.8 Deficiency of other vitamins; N39.0 Urinary tract infection, site not specified; Z12.11 Encounter for screening for malignant neoplasm of colon; R19.5 Other fecal abnormalities; E55.9 Vitamin D deficiency, unspecified; N19 Unspecified kidney failure; E11.9 Type 2 diabetes mellitus without complications; K86.1 Other chronic pancreatitis; C25.9 Malignant neoplasm of pancreas, unspecified

== ENCOUNTER 2024-06-25 09:28 | Outpatient (CLI) | payer OTHER ==
[2024-06-25 10:48] LABS: CHOL HDL RATIO 2.1 (0-5.0)
== END 2024-06-25 09:29 | disposition home or self-care (01) ==
LOC: LAB 09:28
DX: R00.2 Palpitations (principal); I11.9 Hypertensive heart disease without heart failure; E11.9 Type 2 diabetes mellitus without complications; E78.2 Mixed hyperlipidemia

== ENCOUNTER 2024-08-07 08:13 | Outpatient (CLI) | payer OTHER ==
[2024-08-07 09:03] LABS: HEMATOCRIT 37.3 % (36.0-45.00); HEMOGLOBIN 12.9 g/dL (12.0-15.00); MEAN CELL VOLUME 97.8 fL (80.00-100.00); MEAN CORPUSCULAR HEMOGLOBIN 33.8 pg (27.00-32.0); MEAN CORPUSCULAR HGB CONC 34.5 g/dl (32.0-36.0); PLATELET COUNT 336 K/uL (150-450); RED BLOOD COUNT 3.81 M/uL (4.00-6.00); RED CELL DISTRIBUTION WIDTH 12.8 % (11.5-14.5)
[2024-08-07 09:17] LABS: ERYTHROCYTE SEDIMENTATION RATE 13 mm/hr
[2024-08-07 10:50] LABS: VITAMIN D3 25 HYDROXY 23.7 ng/ml (30-120)
[2024-08-07 10:54] LABS: ALBUMIN 4.4 gm/dL (3.4-5.0); BILIRUBIN TOTAL 0.9 mg/dL (0.3-1.2); CREATININE SERUM 0.7 mg/dL (0.55-1.02); GFR 84.51; GLOBULINA 3.6 G/DL (2.4-3.5); POTASSIUM 3.9 mEq/L (3.5-5.1); TSH 2.5 uIU/mL (0.358-3.74)
[2024-08-08 09:58] LABS: RF NEGATIVE (NEGATIVE)
[2024-08-08 10:02] LABS: RAPID PLASMA REAGIN NONREACTIVE BY RPR (NONREACTIVE)
== END 2024-08-07 08:14 | disposition home or self-care (01) ==
LOC: LAB 08:13
PROVIDERS: ATTEND Psychiatry & Neurology Neurology
DX: R41.3 Other amnesia (principal); E53.9 Vitamin B deficiency, unspecified; E55.9 Vitamin D deficiency, unspecified; M06.4 Inflammatory polyarthropathy; R94.4 Abnormal results of kidney function studies; N28.89 Other specified disorders of kidney and ureter

== ENCOUNTER 2024-10-17 09:07 | Outpatient (CLI) | payer OTHER ==
[2024-10-17 10:01] LABS: BASO % 0.7 % (0.1-1.2); EOS # 0.02 (0.04-0.54); EOS % 0.3 % (0.7-7.0); HEMATOCRIT 35.8 % (34.1-44.9); HEMOGLOBIN 12.1 g/dL (11.2-15.7); LYMPH # 2.05 (1.18-3.74); LYMPH % 26.9 % (19.3-53.1); MEAN CORPUSCULAR HEMOGLOBIN 32.7 pg (25.6-32.2); MONO # 0.68 (0.24-0.82); MONO % 8.9 % (4.7-12.5); NEUT # 4.79 (1.56-6.13); NEUT % 62.9 % (34.0-71.1); PH,URINE 6.5 (5.0-8.0); PLATELET COUNT 278 K/uL (163-369); RED CELL DISTRIBUTION WIDTH 12.1 % (11.6-14.4); URINE APPEARANCE Clear; URINE BILIRRUBIN Negative (NEGATIVE); URINE BLOOD Negative; URINE COLOR Yellow; URINE GLUCOSE Negative (NEGATIVE); URINE KETONE Negative (NEGATIVE); URINE LEUKOCYTE Negative; URINE NITRATE Negative; URINE PROTEIN Negative (NEGATIVE); URINE UROBILINOGEN 0.2 E.U./dl
[2024-10-17 10:02] LABS: URINE BACTERIA 3.6 uL (0.0-1933); URINE EPITHELIAL CELLS 1.7 uL (0.0-38.8); URINE WBC 3.6 uL (0.0-23.2)
[2024-10-17 10:57] LABS: ALBUMIN 3.9 gm/dL (3.4-5.0); BILIRUBIN TOTAL 0.74 mg/dL (0.3-1.2); CALCIUM 9.6 mg/dL (8.5-10.1); CHOL HDL RATIO 2.4 (0-5.0); CREATININE SERUM 0.72 mg/dL (0.55-1.02); GFR 81.55; GLOBULINA 3.4 G/DL (2.4-3.5); POTASSIUM 4.3 mEq/L (3.5-5.1); TOTAL PROTEIN 7.3 gm/dL (6.4-8.2); TSH 1.87 uIU/mL (0.358-3.74)
== END 2024-10-17 09:16 | disposition home or self-care (01) ==
LOC: LAB 09:07
PROVIDERS: ATTEND Internal Medicine Geriatric Medicine
DX: D50.9 Iron deficiency anemia, unspecified (principal); E03.9 Hypothyroidism, unspecified; I11.9 Hypertensive heart disease without heart failure; E78.2 Mixed hyperlipidemia; E56.8 Deficiency of other vitamins; N39.0 Urinary tract infection, site not specified; Z12.11 Encounter for screening for malignant neoplasm of colon; R19.5 Other fecal abnormalities; E55.9 Vitamin D deficiency, unspecified; N19 Unspecified kidney failure; E11.9 Type 2 diabetes mellitus without complications

== ENCOUNTER → 2025-01-25 10:09 | Outpatient (CLI) | payer OTHER ==
[2025-01-25 10:55] LABS: BASO % 0.7 % (0.1-1.2); EOS # 0.03 (0.04-0.54); EOS % 0.5 % (0.7-7.0); LYMPH # 1.69 (1.18-3.74); LYMPH % 29.0 % (19.3-53.1); MEAN PLATELET VOLUME 8.70 fl (9.4-12.4); MONO # 0.57 (0.24-0.82); MONO % 9.8 % (4.7-12.5); NEUT # 3.48 (1.56-6.13); NEUT % 59.7 % (34.0-71.1); RED CELL DISTRIBUTION WIDTH 11.9 % (11.6-14.4)
[2025-01-25 11:47] LABS: ALT/SGPT 16.0 U/L (12-78); AST/SGOT 12.0 U/L (15-37); BILIRUBIN TOTAL 0.66 mg/dL (0.3-1.2); BUN CREA RATIO 17.0 (7.0-25.0); CHOL HDL RATIO 2.4 (0-5.0); CREATININE SERUM 0.82 mg/dL (0.55-1.02); GFR 70.18; GLOBULINA 3.5 G/DL (2.4-3.5); GLUCOSE FASTING 89.0 mg/dL (65-100); HDL 80.0 mg/dl (40-60); LDL 100.0 mg/dl (0-130); OSMOLALITY SERUM 281.0 MOSM/KG (275-295); TSH 0.748 uIU/mL (0.358-3.74); VLDL 10.0 (0-39)
[2025-01-25 12:35] LABS: URINE APPEARANCE Clear; URINE BILIRRUBIN Negative (NEGATIVE); URINE BLOOD Negative; URINE COLOR Yellow; URINE GLUCOSE Negative (NEGATIVE); URINE KETONE Negative (NEGATIVE); URINE LEUKOCYTE Negative; URINE NITRATE Negative; URINE PROTEIN Negative (NEGATIVE); URINE UROBILINOGEN 0.2 E.U./dl
[2025-01-25 13:27] LABS: URINE BACTERIA 2.3 uL (0.0-1933); URINE CAST 0.00 uL (0.0-1.40); URINE EPITHELIAL CELLS 1.3 uL (0.0-38.8); URINE RBC 1.4 uL (0.0-20.8); URINE WBC 1.0 uL (0.0-23.2)
== END | disposition home or self-care (01) ==
LOC: LAB 10:09
DX: R00.2 Palpitations (principal); I11.9 Hypertensive heart disease without heart failure; E11.9 Type 2 diabetes mellitus without complications; E78.2 Mixed hyperlipidemia

== ENCOUNTER 2025-02-18 09:14 | Outpatient (CLI) | payer OTHER | END 2025-02-18 09:23 | disposition home or self-care (01) | LOC: MAMO-SONO 09:14 | PROVIDERS: ATTEND Specialist | DX: N60.11 Diffuse cystic mastopathy of right breast (principal); N60.12 Diffuse cystic mastopathy of left breast ==